=== PATIENT | male | born 1980 | race Caucasian/White ===

== ENCOUNTER 2020-04-15 03:55 | Emergency (ER) | payer OTHER ==
[~2020-04-15] VITALS: Ht 182.9 cm; Wt 75.7 kg
[2020-04-15 04:12] VITALS: BP 116/70
[2020-04-15] MEDS ORDERED: IBUPROFEN 600 MG TABLET PO ONE ×2 (04:30→04:34)
== END 2020-04-15 04:39 | disposition home or self-care (01) ==
LOC: ER 04:00
DX: K62.3 Rectal prolapse (principal); F17.200 Nicotine dependence, unspecified, uncomplicated